=== PATIENT | female | born 1985 | race Caucasian/White ===

== ENCOUNTER 2024-02-05 22:32 | Emergency (ER) | payer OTHER ==
[2024-02-05] MEDS: HYDROmorphone 0.5 MG/0.5 ML Syringe IVPUSH ONE (23:09)
[2024-02-06] MEDS ORDERED: Propofol 200 MG/20 ML SDV ONE (00:30)
[2024-02-06] MEDS: HYDROmorphone 0.5 MG/0.5 ML Syringe IVPUSH ONE (01:11)
== END 2024-02-06 01:47 | disposition home or self-care (01) ==
LOC: JP.ED 22:32
DX: S59.202A Unspecified physeal fracture of lower end of radius, left arm, initial encounter for closed fracture (principal); S52.612A Displaced fracture of left ulna styloid process, initial encounter for closed fracture; I10 Essential (primary) hypertension; F17.210 Nicotine dependence, cigarettes, uncomplicated; Z79.899 Other long term (current) drug therapy; Z79.51 Long term (current) use of inhaled steroids; Z91.013 Allergy to seafood; W19.XXXA Unspecified fall, initial encounter
CPT/HCPCS: 25605; 73110-26-LT; 73110-LT; 96374; 96376; 99156; 99283; 99284-25; J1171; J2704

== ENCOUNTER 2024-02-12 08:07 | Day surgery (SDC) | payer OTHER ==
[2024-02-12 08:30] LABS: BASOPHILS ABSOLUTE AUTO 0.07 K/uL (0.00-0.10); EOSINOPHILS ABSOLUTE AUTO 0.15 K/uL (0.00-0.40); EOSINOPHILS PERCENT AUTO 2.2 % (0.0-5.4); HEMATOCRIT 37.1 % (34.3-46.0); HEMOGLOBIN 12.1 g/dL (11.2-15.5); IMMATURE GRAN ABSOLUTE AUTO 0.02 K/uL (0.00-0.23); IMMATURE GRAN PERCENT AUTO 0.3 % (0.0-0.7); LYMPHOCYTES ABSOLUTE AUTO 1.25 K/uL (0.8-3.3); LYMPHOCYTES PERCENT AUTO 18.1 % (11.4-47.7); MEAN CORPUSCULAR HEMOGLOBIN 27.3 pg (31.6-35.5); MEAN CORPUSCULAR HGB CONC 32.6 g/dL (31.6-35.5); MEAN CORPUSCULAR VOLUME 83.7 fL (81.4-99.0); MONOCYTES ABSOLUTE AUTO 0.65 K/uL (0.20-0.90); MONOCYTES PERCENT AUTO 9.4 % (3.3-12.6); NEUTROPHILS ABSOLUTE AUTO 4.77 K/uL (1.0-7.6); PLATELET COUNT,PLT 346 K/uL (130-375); RED BLOOD CELL COUNT 4.43 M/uL (3.77-5.24); WHITE BLOOD CELL COUNT,WBC 6.9 K/uL (3.2-11.0)
[2024-02-12] MEDS: Nozin Nasal Sanitizer NASBOTH ONE (08:33)
[2024-02-12] MEDS: Lactated Ringers 1,000 ML IV SCH (08:34)
[2024-02-12] MEDS: ceFAZolin 2 GM in Premix Bag 1 BAG IV ONE (08:37)
[2024-02-12] MEDS ORDERED: Midazolam 1 MG/ML 2 ML SDV ONE (08:39)
[2024-02-12] MEDS ORDERED: Propofol 200 MG/20 ML SDV ONE ×2 (08:39→08:49)
[2024-02-12] MEDS ORDERED: fentaNYL 100 MCG/2 ML SDV ONE (08:39)
[2024-02-12] MEDS ORDERED: fentaNYL 250 MCG/5 ML SDV ONE (08:49)
[2024-02-12] MEDS ORDERED: Dexamethasone 4 MG/ML SDV ONE (08:49)
[2024-02-12] MEDS ORDERED: Ondansetron 4 MG/2 ML SDV ONE (08:49)
[2024-02-12 08:50] LABS: A/G RATIO 0.7 (1.2-2.2); ALANINE AMINOTRANSFERASE,ALT 30 U/L (12-78); ALBUMIN 3.3 g/dL (3.4-5.0); ALKALINE PHOSPHATASE 50 U/L (46-116); ANION GAP 11.8 mmol/L (5.0-14.0); ASPARTATE AMNIOTRANSFERASE,AST 33 U/L (15-37); BILIRUBIN TOTAL 0.5 mg/dL (0.2-1.0); BLOOD UREA NITROGEN,BUN 5 mg/dL (7-18); CALCIUM 9.4 mg/dL (8.5-10.1); CARBON DIOXIDE,CO2 24 mmol/L (21-32); CHLORIDE,CL 106 mmol/L (100-108); CREATININE 0.9 mg/dL (0.6-1.0); EST CRCL DRUG DOSING (CG) 84.73 mL/min; ESTIMATED GFR 84 mL/min (>60); GLUCOSE RANDOM 92 mg/dL (74-106); POTASSIUM,K 3.6 mmol/L (3.6-5.2); SODIUM,NA 142 mmol/L (140-148)
[2024-02-12] MEDS ORDERED: Ketorolac 30 MG/ML SDV ONE (09:04)
[2024-02-12] MEDS: Bupivacaine 0.5% 30 ML SDV ONE (09:18)
[2024-02-12] MEDS: Morphine 2 MG/ML SYRINGE IVPUSH ONE (10:27)
[2024-02-12] MEDS: Acetaminophen/HYDROcodone 325-5 MG Tab PO PRN (11:19)
== END 2024-02-12 11:45 | disposition home or self-care (01) ==
LOC: JP.SDS 08:07
PROVIDERS: ATTEND Specialist
DX: S52.552A Other extraarticular fracture of lower end of left radius, initial encounter for closed fracture (principal); F17.200 Nicotine dependence, unspecified, uncomplicated; X58.XXXA Exposure to other specified factors, initial encounter
CPT/HCPCS: 01830; 25607; 36415; 76000; 80053; 84703; 85025; A9270; C1713; J0665; J0690; J1100; J1885; J2250; J2270; J2405; J2704; J3010; J7120

== ENCOUNTER → 2024-08-19 | Day surgery (SDC) | payer OTHER ==
[~2024-08-19] MED LIST: Lidocaine 0.5% 50 ML SDV ONE; Midazolam 1 MG/ML 2 ML SDV ONE; Propofol 200 MG/20 ML SDV ONE; fentaNYL 100 MCG/2 ML SDV ONE
[2024-08-19 06:54] LABS: HEMATOCRIT 39.6 % (34.3-46.0); HEMOGLOBIN 12.9 g/dL (11.2-15.5); MEAN CORPUSCULAR HEMOGLOBIN 28.9 pg (31.6-35.5); MEAN CORPUSCULAR HGB CONC 32.6 g/dL (31.6-35.5); MEAN CORPUSCULAR VOLUME 88.6 fL (81.4-99.0); RED BLOOD CELL COUNT 4.47 M/uL (3.77-5.24); WHITE BLOOD CELL COUNT,WBC 7.2 K/uL (3.2-11.0)
[2024-08-19] MEDS: Nozin Nasal Sanitizer NASBOTH ONE (06:54)
[2024-08-19 07:09] LABS: CREATININE 0.8 mg/dL (0.6-1.0); EST CRCL DRUG DOSING (CG) 93.53 mL/min; POTASSIUM,K 3.5 mmol/L (3.6-5.2)
[2024-08-19 07:11] LABS: ANION GAP 20.5 mmol/L (5.0-14.0)
[2024-08-19] MEDS: Lactated Ringers 1,000 ML IV SCH (07:13)
[2024-08-19] MEDS: ceFAZolin 1 GM in Premix Bag 1 BAG IV ONE (07:50)
[2024-08-19] MEDS: Bupivacaine 0.5% 30 ML SDV ONE (08:21)
[2024-08-19] MEDS: Acetaminophen/HYDROcodone 325-5 MG Tab PO ONE (10:03)
== END ==
LOC: JP.SDS 06:32
PROVIDERS: ATTEND Specialist
DX: G56.02 Carpal tunnel syndrome, left upper limb (principal); T84.84XA Pain due to internal orthopedic prosthetic devices, implants and grafts, initial encounter; F17.200 Nicotine dependence, unspecified, uncomplicated
CPT/HCPCS: 01810; 20680; 36415; 64721; 80048; 84703; 85027; A9270; J0665; J0689; J2250; J2704; J3010; J7120